=== PATIENT | female | born 1945 | race Caucasian/White ===

== ENCOUNTER 2017-01-29 10:31 | Day surgery (SDC) | payer MEDICARE, OTHER ==
[~2017-01-29] VITALS: Ht 157.5 cm; Wt 87.5 kg
[2017-01-29] VITALS (7 sets, daily range): BP systolic 122–139; BP diastolic 78–99; PULSE 74–82; RESP 16–18; TEMP 98.1; O2SAT 96–99
[~2017-01-29 10:31] MED LIST: CALC-137 PO; CARV3.125 PO; CO Q100C9 PO; FLUT1SPR9; LEVO.025 PO; ROSU40 PO; TAB-TAB PO; WARF5TAB PO
[2017-01-29] MEDS ORDERED: ASPIRIN 81 MG CHEW TAB PO SCH (11:15)
[2017-01-29] MEDS ORDERED: NS 1000P @30 MLS/HR (KVO) IV SCH (11:15)
[2017-01-29 11:16] LABS: AUTOMATED NEUTROPHIL # 5.7 TH/MM3 (1.8-7.7); BASOPHIL % 0.5 % (0.0-2.0); EOSINOPHIL # 0.1 TH/MM3 (0-0.4); EOSINOPHIL % 1.6 % (0.0-4.0); HEMATOCRIT 41.8 % (35.0-46.0); HEMO FLAGS DIFF FINAL; LYMPH % 19.2 % (9.0-44.0); LYMPHOCYTE # 1.6 TH/MM3 (1.0-4.8); MEAN CELL VOLUME 85.8 FL (80.0-100.0); MEAN CORPUSCULAR HGB CONC 32.6 % (32.0-36.0); MONO % 10.4 % (0.0-8.0); NEUT % 68.3 % (16.0-70.0); PLATELET COUNT 169 TH/MM3 (150-450); RED BLOOD COUNT 4.87 MIL/MM3 (4.00-5.30); RED CELL DISTRIBUTION WIDTH 14.8 % (11.6-17.2); WHITE BLOOD COUNT 8.3 TH/MM3 (4.0-11.0)
[2017-01-29] MEDS ORDERED: VITA100021 SL (11:16)
[2017-01-29] MEDS ORDERED: FURO20TA PO (11:16)
[2017-01-29] MEDS ORDERED: ROSU10 PO (11:16)
[2017-01-29] MEDS ORDERED: CHOL50006 (11:16)
[2017-01-29] MEDS ORDERED: AREDS (11:16)
[2017-01-29] MEDS ORDERED: LEVO50TA4 PO (11:16)
[2017-01-29] MEDS ORDERED: CLAR10CA3 PO (11:16)
[2017-01-29] MEDS ORDERED: CALC600T25 (11:16)
[2017-01-29] MEDS ORDERED: BENZ1CAP8 PO (11:16)
[2017-01-29] MEDS ORDERED: MONT10TA2 PO (11:16)
[2017-01-29] MEDS ORDERED: COEN400C (11:16)
[2017-01-29] MEDS ORDERED: WARF-60 PO (11:16)
[2017-01-29] MEDS ORDERED: MULT1CHW70 (11:16)
[2017-01-29] MEDS ORDERED: FLUT1INH7 INH (11:16)
[2017-01-29 11:29] LABS: APTT (PATIENT) 30.8 SEC (24.3-30.1); INTERNATIONAL NORMALIZED RATIO 1.2 RATIO; PROTHROMBIN TIME - PATIENT 12.9 SEC (9.8-11.6)
[2017-01-29 11:30] LABS: BICARBONATE 30.1 MEQ/L (21.0-32.0); POTASSIUM 3.6 MEQ/L (3.5-5.1)
[2017-01-29] MEDS ORDERED: HEPARIN-NS/PF INJ 500 ML ONE (12:14)
[2017-01-29] MEDS ORDERED: ADENOSINE STRESS TEST INJ 90 MG/30 ML VIAL ONE (13:29)
[2017-01-29] MEDS ORDERED: HEPARIN SODIUM - IV 10,000 UNITS/10 ML VIAL ONE (13:38)
[2017-01-29] MEDS ORDERED: SODIUM CHLORIDE 0.9% FLUSH 10 ML FLUSH IV FLUSH PRN (14:00)
[2017-01-29] MEDS ORDERED: SODIUM CHLORIDE 0.9% FLUSH 10 ML FLUSH PRN (14:00)
[2017-01-29] MEDS ORDERED: MISC INFORMATION XX ONE ×2 (14:00)
--- NOTE | 2017-01-29 14:06 | CATHPROC ---
[facility] HIS Report Study Information Study Number Admission Scheduled Start Study Start [id number] 01/29/2017 01/29/2017 Jan 29 2017 11:59AM Study Type [place] Service Left/Possible PCI Cardiac Catheterization Referring Institution Admit Source Facility Department 1 Other [facility] - [facility] T[facility] Physician and Clinical Staff Initial Jarret King Tax Analystverona Madrid RN, Aniyah Lezama BSRN Recorder Ximena Benz RCIS TECH2 Scrub Ankit Pugh RCIS(BS) Procedures Performed Procedure Location (Site) Vessel Name Coronary Angiograms LCA Left Coronary Coronary Angiograms RCA Right Coronary L Heart Cath LV Gram-hand inj. LV LV Ventricle Equipment Time Floater Operator Description Size Mfg Part Number Used/Scraped TRANSDUCER, TRUWAVE 12:15 GROSS WERNER * [id number] Used W/UdacityCOCK [id number] 12:15 [employer]LINE [employer] PACK, CCL CUSTOM * Used *[id number] 12:15 [employer]Strata PACER PEN, SKIN DUAL W/ RULER * [id number] Used 13:29 [employer] MEDICAL PACK, ANGIOPLASTY * [id number] Used [id number] 13:17 [employer] MEDICAL SHEATH, FR4.5 PRELUDE 11CM FR 4.5 Used [id number]- 13:27 [employer] MEDICAL SHEATH, FR6.5 PRELUDE 11CM FR 6.5 [id number] Used *[id number] 12:15 [employer] MEDICAL WIRE, 3MMJ .035 180CM 180CM [id number] Used [id number] 12:15 NAMIC MANIFOLD, 4 PORT * Used *[id number] 12:15 NYCOMED OMNIPAQUE, 350 MG, 100ML 100ML [id number] Used [id number] 12:15 MER[employer] MEDICAL BLANKET,WARM AIR CCL * Used *[id number] 13:33 [place] PRIME WIRE, VERRATA 185CM 185CM [id number] Used History: Current Medications Medication Dosage/Unit Route Frequency Last Date/Time Taken Coumadin Statins (any) Synthroid CRESTOR LASIX History: Allergies Allergy Reaction Vibramycin hives TAPE History: Risk Factors Family History of Hypertension Dyslipidemia Previous PA Previous Heart Failure Premature CAD No Yes No Yes No Prior Valve Prior PCI Prior CABG Surgery Yes No No Cerebrovascular Peripheral Artery Chronic Lung On Dialysis Diabetes Disease Disease Disease No Yes No No No History: Stress Tests Stress or Imaging Studies Performed Yes Standard Exercise Stress Test No Stress Echo No Stress Test SPECT Stress Test SPECT Result Stress Test SPECT Ischemia Risk/Extent Yes Positive High Stress Test CMR No Cardiac CTA Coronary Calcium Score No No History: Other Disease Selection Items Gerd History: Other Current Smoker Method Quit Packs a Day Years Used Pack Years No Cigarettes 10 Years Ago 1 40 40 Labs Hgb (g/dl) Hct (%) WBC (l/cumm) Platelets (thousands) 12.00-18.00 37.00-55.00 4.80-10.80 140.00-450.00 13.6 41.8 8.3 169 Glucose (mg/dl) BUN (mg/dl) Creatinine (mg/dl) BUN:Creatinine (1:x) 60.00-110.00 8.00-20.00 0.10-9.00 10.00-20.00 101 17 0.9 18.9 Na (meq/l) K (meq/l) 138.00-146.00 3.80-5.10 142 3.6 INR (PTT:PT) 0.50-2.00 1.2 CPK-MB (ng/ML) 0.00-7.00 Not Drawn Medication Medication Total Dose (Bolus/Oral) Medication Total Dosage/Unit 1% XYLOCAINE 20 mL HEPARIN 6000 units Medications (Bolus/Oral) Medication Time Given Dosage/Unit Administered By Reason 1% XYLOCAINE 01/29/2017 1:15:52 PM 20 mL Jarret Soriano 20 mL 1% XYLOCAINE given in lab by Jarret Soriano in Right Groin via Subcutaneous. HEPARIN 01/29/2017 1:27:32 PM 6000 units Ruddy Madrid RN 6000 units HEPARIN given in lab by Ruddy Madrid RN in Left Antecubital via Peripheral IV. Ordered by Jarret Soriano. Medication (Drip) Medication Time Given Dosage/Unit Concentration/Unit Diluent (ml) Solutio n ADENOSINE DRIP 01/29/2017 1:32:59 PM 140 mcg/kg/min 90 mg 80 NaCl .9 140 mcg/kg/min ADENOSINE DRIP given in lab by Ruddy Madrid RN in Right Antecubital via Peripheral IV. Pump/Drip Flow = 630.19 ml/hr using NaCl .9 with a concentration of 90 mg in 80 ml. Ordered by Jarret Soriano. ADENOSINE DRIP 01/29/2017 1:42:18 PM 140 mcg/kg/min 90 mg 80 NaCl .9 140 mcg/kg/min ADENOSINE DRIP given in lab by Ruddy Madrid RN in Right Antecubital via Peripheral IV. Pump/Drip Flow = 630.19 ml/hr using NaCl .9 with a concentration of 90 mg in 80 ml. Ordered by Jarret Soriano. ADENOSINE DRIP 01/29/2017 1:35:46 PM 140 mcg/kg/min 90 mg 80 NaCl .9 STOPPED 140 mcg/kg/min ADENOSINE DRIP STOPPED given in lab by Ruddy Madrid RN in Left Antecubital via Periphe ral IV. Pump/Drip Flow = 630.19 ml/hr using NaCl .9 with a concentration of 90 mg in 80 ml. Ordered by Jarret Soriano. Reason: As per phradha sicians verbal order. drip discontinued ADENOSINE DRIP 01/29/2017 1:45:16 PM 140 mcg/kg/min 90 mg 80 NaCl .9 STOPPED 140 mcg/kg/min ADENOSINE DRIP STOPPED given in lab by Ruddy Madrid RN in Left Antecubital via Periphe ral IV. Pump/Drip Flow = 630.19 ml/hr using NaCl .9 with a concentration of 90 mg in 80 ml. Ordered by Jarret Soriano. Reason: As per phy sicians verbal order. drip discontinued IV Solutions 01/29/2017 12:17:15 PM 0 mL (IV) 500 NaCl .9 Patient arrived on IV Solutions given by Ruddy Madrid RN in Left Antecubital via Peripheral IV. Pump/ Drip Flow = 20 ml/hr using NaCl .9. Initial Case Assessment Cardiovascular HR Rhythm NIBP Chest Pain 79 sr 140/88 0 Circulatory - Right Pulses Dorsalis Pedis Femoral 3 3 Scale (0,1,2,3,4,d) Circulatory - Left Pulses Dorsalis Pedis Femoral 3 3 Scale (0,1,2,3,4,d) Neurological State Oriented to time-place- Alert Moves all extremities person Respiration - General Respiration Rate SpO2 (%) (B/min) 20 98 Final Case Assessment Cardiovascular HR Rhythm NIBP Chest Pain 77 sr 143/91 0 Circulatory - Right Pulses Dorsalis Pedis Femoral 3 3 Scale (0,1,2,3,4,d) Circulatory - Left Pulses Dorsalis Pedis Femoral 3 3 Scale (0,1,2,3,4,d) Neurological State Oriented to time-place- Alert Moves all extremities person Respiration - General Respiration Rate SpO2 (%) (B/min) 19 92 Chronological Log Time Study Chronological Log 12:10:59 Patient arrived via Bed. 12:11:01 Patient Name, D.O.B, / Armband Verified By R.N. 12:11:09 Pre-op and post- op instructions given; patient acknowledges understanding of instructions. 12:11:10 Verbal Stimulation=2 Physical Stimulation=2 Airway=2 Respiration=2 TOTAL=8. (0=absent, 1=li mited, 2=present) 12:11:11 Presedation assessment performed by Drywall Taper RN. 12:11:14 Patient has been NPO for More than 6Hrs. 12:11:15 Skin Breakdown-none Vitals capture started with the following parameters, Patient=Adult, Interval=15 min, Initial P ibvjokd=555 mmHg, 12:14:43 Deflation Rate=5 mmHg 12:15:24 Bilateral groins prepped with 2% chlorhexidine, and with a 3 min. waiting time. 12:15:26 GBAV=953/88 mmhg 12:16:22 Inna Prominences Protected 12:16:26 A # 20 IV was noted in the Antecubital (left). Grade = patent Patient arrived on IV Solutions given by Ruddy Madrid RN in Left Antecubital via Peripheral IV. Pump/Drip Flow = 20 12:17:15 ml/hr using NaCl .9. 12:17:45 History and physical on the chart or being dictated. Assessment: Initial Case, HR=79 BPM, Rhythm=sr, YOKN=654/88 mmhg, Chest Pain=0 Right Pulses: Blake Ped=3, Femoral=3 12:17:49 Left Pulses: Blake Ped=3, Femoral=3 Neurological: State=Alert, Ox3, CABALLERO Respiration: Resp=20 B/min, SpO2=98 % 12:20:59 HR=77 bpm, QUZV=302/89 mmhg, SpO2=98.0 %, Resp=20 B/min 12:25:22 HR=75 bpm, OLVF=632/92 mmhg, SpO2=97.0 %, Resp=15 B/min 12:27:26 Reference ECG taken 12:29:29 MD paged 12:29:30 MD responded, delayed 15-20 min 12:30:23 HR=86 bpm, ZKDP=872/91 mmhg, SpO2=97.0 %, Resp=15 B/min 12:32:14 Pressure channel 1 zeroed. 12:35:20 HR=76 bpm, NSMR=910/93 mmhg, SpO2=97.0 %, Resp=18 B/min 12:40:23 HR=76 bpm, HGOG=985/95 mmhg, SpO2=98.0 %, Resp=11 B/min 12:45:48 HR=75 bpm, BNJD=428/89 mmhg, SpO2=96.0 %, Resp=17 B/min 12:51:00 HR=74 bpm, VQFH=277/94 mmhg, SpO2=97.0 %, Resp=16 B/min 12:55:57 HR=72 bpm, SVAA=543/91 mmhg, SpO2=98.0 %, Resp=16 B/min 13:00:23 HR=75 bpm, EDLB=562/83 mmhg, SpO2=94.0 %, Resp=13 B/min 13:05:20 HR=76 bpm, NHPP=872/98 mmhg, SpO2=96.0 %, Resp=13 B/min 13:10:23 HR=74 bpm, EVCZ=468/84 mmhg, SpO2=97.0 %, Resp=15 B/min 13:13:03 MD arrived. 13:13:05 The physician was 43 minutes late. 13:13:23 Consent signed by the physician and the patient and verified by the [facility] staff. Time Out. Correct patient, correct procedure,correct physician, power injector not loaded with contrast with surgical 13:14:45 team present. Time Out Concurred by MD and individual staff in procedure 13:15:24 HR=74 bpm, JQMX=195/83 mmhg, SpO2=94.0 %, Resp=9 B/min 13:15:51 Case Start 13:15:52 20 mL 1% XYLOCAINE given in lab by Jarret Soriano in Right Groin via Subcutaneous. 13:16:38 Access site was Right Femoral Artery. 13:16:45 A SHEATH, FR4.5 PRELUDE 11CM FR 4.5 was advanced into the Fem Art (right) using the Percuta neous technique. A JL 4.0 INFINITI CATHETER FR 4 was advanced over a wire. OMNIPAQUE, 350 MG, 100ML 100ML was us ed for 13:18:54 injections. Recorded Pressure: LV, HR=75, Condition=Condition 1 13:19:46 (Left Ventricle) LV 144/-1/13 13:19:57 The LV was manually injected with 10 cc's and visualized. OMNIPAQUE, 350 MG, 100ML 100ML us ed. Recorded Pressure: LV, Ao, HR=77, Condition=Condition 1 13:20:07 (Left Ventricle) LV 148/9/15, (Aorta) Ao 143/76/103 13:20:23 HR=79 bpm, JQMA=216/98 mmhg, SpO2=94.0 %, Resp=19 B/min 13:20:35 The RCA was injected and visualized at various angles. OMNIPAQUE, 350 MG, 100ML 100ML used . 13:23:21 Catheter was removed A JL 4.0 INFINITI CATHETER FR 4 was advanced over a wire. OMNIPAQUE, 350 MG, 100ML 100ML was us ed for 13:23:22 injections. 13:23:31 The LCA was injected and visualized at various angles. OMNIPAQUE, 350 MG, 100ML 100ML used . 13:25:26 HR=80 bpm, GYWG=664/98 mmhg, SpO2=95.0 %, Resp=10 B/min 13:25:49 Catheter was removed A SHEATH, FR6.5 PRELUDE 11CM FR 6.5 was exchanged in the Fem Art (right). This was necessary in order to 13:26:15 accomodate a larger catheter. 13:27:32 6000 units HEPARIN given in lab by Ruddy Madrid RN in Left Antecubital via Peripheral IV. O rdered by Jarret Soriano. A XB 3.5 GUIDE CATHETER FR 7 was advanced over a wire. OMNIPAQUE, 350 MG, 100ML 100ML was used for 13:29:53 injections. 13:30:27 HR=79 bpm, HFSJ=281/89 mmhg, SpO2=94.0 %, Resp=19 B/min 13:31:12 The LCA was injected and visualized at various angles. OMNIPAQUE, 350 MG, 100ML 100ML used . 13:31:27 Pressure wire adavanced to LCA. 140 mcg/kg/min ADENOSINE DRIP given in lab by Ruddy Madrid RN in Right Antecubital via Peripher al IV. Pump/Drip 13:32:59 Flow = 630.19 ml/hr using NaCl .9 with a concentration of 90 mg in 80 ml. Ordered by Jarret Soriano. 13:33:35 Activated Clotting Time Drawn 13:33:48 Flow Wire was was placed in the CIRC Mid. The FFR measures 0.95 percent. 13:35:28 HR=86 bpm, RZMZ=044/89 mmhg, SpO2=98.0 %, Resp=24 B/min 140 mcg/kg/min ADENOSINE DRIP STOPPED given in lab by Ruddy Madrid RN in Left Antecubital via P eripheral IV. 13:35:46 Pump/Drip Flow = 630.19 ml/hr using NaCl .9 with a concentration of 90 mg in 80 ml. Ordered by Jarret Soriano. Reason: As per physicians verbal order. drip discontinued 13:38:28 Guide and wire removed. A JR 4.0 GUIDE CATHETER FR 6 was advanced over a wire. OMNIPAQUE, 350 MG, 100ML 100ML was used for 13:40:06 injections. 13:40:25 HR=81 bpm, RXLF=840/95 mmhg, SpO2=97.0 %, Resp=14 B/min 13:40:47 Activated Clotting Time Drawn 13:40:48 ACT (Normal Range 90-180) = 350 13:41:16 The RCA was injected and visualized at various angles. OMNIPAQUE, 350 MG, 100ML 100ML used . 140 mcg/kg/min ADENOSINE DRIP given in lab by Ruddy Madrid RN in Right Antecubital via Peripher al IV. Pump/Drip 13:42:18 Flow = 630.19 ml/hr using NaCl .9 with a concentration of 90 mg in 80 ml. Ordered by Jarret Soriano. 13:43:13 Activated Clotting Time Drawn 13:44:55 Flow Wire was was placed in the RCA. The FFR measures 95 percent. 140 mcg/kg/min ADENOSINE DRIP STOPPED given in lab by Ruddy Madrid RN in Left Antecubital via P eripheral IV. 13:45:16 Pump/Drip Flow = 630.19 ml/hr using NaCl .9 with a concentration of 90 mg in 80 ml. Ordered by Jarret Soriano. Reason: As per physicians verbal order. drip discontinued 13:45:26 HR=89 bpm, WOCJ=611/91 mmhg, SpO2=98.0 %, Resp=15 B/min 13:45:34 The PRIME WIRE, VERRATA 185CM 185CM was removed. 13:48:33 ACT (Normal Range 90-180) = 308 13:50:13 Case End 13:50:30 HR=77 bpm, RIRE=171/91 mmhg, SpO2=93.0 %, Resp=11 B/min Assessment: Final Case, HR=77 BPM, Rhythm=sr, MFPP=626/91 mmhg, Chest Pain=0 Right Pulses: Blake Ped=3, Femoral=3 13:52:26 Left Pulses: Blake Ped=3, Femoral=3 Neurological: State=Alert, Ox3, CABALLERO Respiration: Resp=19 B/min, SpO2=92 % 13:55:26 HR=78 bpm, HCAF=896/95 mmhg, SpO2=92.0 %, Resp=13 B/min 13:56:27 In the Fem Art (right) the SHEATH, FR6.5 PRELUDE 11CM FR 6.[address] by Ankit Olsen RCIS(BS). 13:56:35 Sterile dressing applied to site 13:56:36 No case complications noted. 13:56:37 Cine recording checked. 13:56:39 Bedside Report will be given. 13:56:44 A Left Heart Cath was performed. 14:00:15 Patient moved to stretcher 14:01:03 Patient transported to DOCU. End Study - Contrast Media Used In Study Contrast Total Opened (mL) Total Used (mL) Total Wasted (mL) Omnipaque 90 90 0 End Study - Maximum Contrast Load Max Contrast Load (mL) 468.9 End Study - Radiation Exposure Fluoro Time (minutes) 3.7 End Study - Patient Disposition Complications Transferred To Telemetry Bed
--- NOTE | 2017-01-29 15:12 | EKG ---
Date Performed: 01/29/2017 Time Performed: 11:18:20 PTAGE: 71 years EKG: Sinus rhythm . Prolonged QT interval Inferior infarct - age undetermined Compared to the previous tracing possible inferior infarct pattern is more prominent. Abnormal ECG PREVIOUS TRACING : 06/28/2015 10.57 DOCTOR: Leo Bain Interpretating Date/Time 01/29/2017 15:10:27
[2017-01-29] MEDS ORDERED: IOHEXOL 350 MG/ML 100 ML BTL (for Cath Lab) OTHER ONE (16:20)
--- NOTE | 2017-01-29 19:04 | MA ---
cc: ZULLY DONALDSON M.D. DATE 01/29/2017 PROCEDURE PERFORMED 1. Left heart catheterization. 2. Left ventriculography. 3. Coronary angiography. 4. FFR of the obtuse marginal vessel. 5. FFR of the distal right coronary artery. INDICATION Coronary artery disease, dyspnea on exertion, anginal equivalent, [place] Cardiovascular Society class 2 angina, [place] Heart Association class 2 congestive heart failure, status post mitral valve repair, large fixed defect in the posterior wall, inferior wall, apical wall, a small to moderate size reversible defect in inferior wall. Ejection fraction 58% by gated SPECT. PROCEDURE The patient was brought to the Cardiac Catheterization Laboratory, prepped and draped in the usual sterile fashion. 10 cc of 1% lidocaine was used to locally anesthetize the right common femoral artery. A 4 Ivorian sheath was successfully placed in the right common femoral artery. A 4 Ivorian JR4 and JL4 catheters were used to perform left and right coronary angiography and left ventriculography. FINDINGS LEFT VENTRICULOGRAPHY LV pressures: 145/17 . CORONARY ANGIOGRAPHY Right coronary artery was large and dominant. There is mild diffuse disease in the proximal segment up to 30-40% angiographically. The vessel appears to be possibly slightly ectatic. There is a long 51% stenosis in the distal vessel. Left main coronary artery has no significant disease angiographically. Left circumflex vessel also appears to be ectatic in the proximal segment. There is no significant obstructive disease. There is relative stenosis from the mid to the proximal vessel of about 20-30%. There is a large first obtuse marginal vessel which has a distal takeoff which has a long proximal 55-60% stenosis with very irregular plaque. LAD is transapical and has no significant obstructive disease angiographically. DISCUSSION Due to the patient's high risk nuclear stress test and large fixed defect with reversibility in the inferior apical wall, 51% stenosis in the distal right coronary artery and 60% stenosis in the large distal marginal vessel, I did think FFR was medically necessary, therefore, the 4 Ivorian sheath was exchanged for a 6 Ivorian sheath. The patient was given 70 units per kilo of heparin with an ACT of 308. 6 Ivorian XB 3.5 guide was placed in to the left main coronary artery, 0.014 [place] pressure wire was placed in the proximal left circumflex vessel. The introducer was removed. Touhy was firmly fastened. The sheath was thoroughly flushed with 20 cc of normal saline. Pressure wave forms were then normalized. The pressure wire was then advanced in to the distal obtuse marginal vessel. The patient was infused with 140 micrograms per kilogram per minute of adenosine. FFR was 0.95. We then turned out attention to the right coronary artery. A JR4 guide was placed in the ostium of the right coronary artery. 0.014 [place]well pressure wire was placed in the proximal right coronary artery. Introducer was removed. Touhy was firmly fastened. Guide catheter was thoroughly flushed with 20 cc of normal saline. The pressure waveforms were then normalized. FFR wire was then passed beyond the distal right coronary artery stenosis into the distal right PDA. The patient was infused with 140 micrograms per kilogram per minute of adenosine. The FFR was 0.96. CONCLUSION 1. High-risk nuclear stress test with moderate two-vessel coronary artery disease as detailed above. 51% distal right coronary artery and 60% long proximal stenosis and a large obtuse marginal vessel as detailed above. 2. Normal LV systolic function ejection fraction 60%. 3. FFR of the obtuse marginal vessel equaled to 0.95. FFR of the distal right coronary artery equaled 0.96. RECOMMENDATIONS 1. Defer PCI. 2. Recommend medical management of coronary artery disease. Cardiac risk factors modification. 3. I have instructed the patient to resume her Coumadin at the previous dose beginning tomorrow January 30, 2017. She has been instructed to follow up with me on January. Otherwise continue Crestor 10 mg. The patient has had issues with myalgias at higher doses. We will re-discuss risks and benefits in increasing dose to achieve LDL target of less than 70 at the next office visit. MD CANDACE Salguero/CAMACHO /1:54 PM /6:29 PM
[2017-01-29] MEDS: SODIUM CHLORIDE 0.9% FLUSH 10 ML FLUSH SCH (21:00)
[2017-01-29] MEDS ORDERED: SODIUM CHLORIDE 0.9% FLUSH 10 ML FLUSH SCH (21:00)
[2017-01-29] MEDS ORDERED: ACETAMINOPHEN 325 MG TAB PO SCH (21:45)
[2017-01-30] VITALS (12 sets, daily range): BP systolic 111–113; BP diastolic 63–76; PULSE 67–77; RESP 18; TEMP 98; O2SAT 95–98
[2017-01-30 04:36] LABS: AUTOMATED NEUTROPHIL # 7.3 TH/MM3 (1.8-7.7); BASOPHIL # 0.1 TH/MM3 (0-0.2); BASOPHIL % 0.9 % (0.0-2.0); EOSINOPHIL # 0.2 TH/MM3 (0-0.4); EOSINOPHIL % 1.9 % (0.0-4.0); HEMATOCRIT 41.7 % (35.0-46.0); HEMO FLAGS DIFF FINAL; LYMPH % 15.7 % (9.0-44.0); LYMPHOCYTE # 1.6 TH/MM3 (1.0-4.8); MEAN CELL VOLUME 85.5 FL (80.0-100.0); MEAN CORPUSCULAR HEMOGLOBIN 28.3 PG (27.0-34.0); MEAN CORPUSCULAR HGB CONC 33.1 % (32.0-36.0); MONO % 10.8 % (0.0-8.0); NEUT % 70.7 % (16.0-70.0); PLATELET COUNT 175 TH/MM3 (150-450); RED BLOOD COUNT 4.87 MIL/MM3 (4.00-5.30); RED CELL DISTRIBUTION WIDTH 14.5 % (11.6-17.2); WHITE BLOOD COUNT 10.2 TH/MM3 (4.0-11.0)
[2017-01-30 05:12] LABS: BICARBONATE 27.7 MEQ/L (21.0-32.0)
[2017-01-30] MEDS: SODIUM CHLORIDE 0.9% FLUSH 10 ML FLUSH SCH (10:00)
--- NOTE | 2017-01-30 10:21 | EKG ---
Date Performed: 01/30/2017 Time Performed: 06:44:52 PTAGE: 71 years EKG: Sinus rhythm Prolonged QT interval Possible inferior infarct - age undetermined Abnormal ECG PREVIOUS TRACING : 01/29/2017 11.18 DOCTOR: Jerzy Cordero Interpretating Date/Time 01/30/2017 10:18:02
== END 2017-01-30 11:22 | disposition home or self-care (01) ==
LOC: HDOC 10:31 → HDIC 10:33 → HCIS 18:32 → HDOC 01-30 11:22
PROVIDERS: ATTEND Internal Medicine Interventional Cardiology
DX: I25.119 Atherosclerotic heart disease of native coronary artery with unspecified angina pectoris (principal); I11.0 Hypertensive heart disease with heart failure; I50.9 Heart failure, unspecified; I25.2 Old myocardial infarction; E03.9 Hypothyroidism, unspecified; Z95.2 Presence of prosthetic heart valve; Z87.891 Personal history of nicotine dependence
CPT/HCPCS: 80048; 82550; 85002; 85025; 85610; 85730; 93005; 93458; 93571; 93572; C1769; C1887; C1893; J0153; J1644; Q9967